=== PATIENT | female | born 1975 | race African-American/Black ===

== ENCOUNTER 2016-09-14 11:05 | Emergency (ER) | payer MEDICAID ==
[~2016-09-14] VITALS: Ht 165.1 cm; Wt 90.0 kg
[~2016-09-14 11:05] MED LIST: LISI-363 PO; METO50CR PO; TRIA1CAP PO; [UNRECOGNIZED DRUG - CODE] PO
--- NOTE | 2016-09-14 11:18 | PD ---
Physical Exam Date Seen by Provider: Sep 14, 2016 Time Seen by Provider: 11:15 Narrative 40 y/o Female patient here with several day history of lower extremity pain and abdominal cramps and distention. Denies changes in bowels or bladder. No vomitting. LMP August 20. Vital signs reviewed. Patient stable. Awaiting Bed placement. [facility] Medical Record Reviewed: Yes Supervised Visit with DAMI: Yes Condition: Stable Jarrett Olmos Sep 14, 2016 11:18
--- NOTE | 2016-09-14 12:09 | PD ---
HPI Chief Complaint: Abdominal Pain Time Seen by Provider: 12:08 Travel History International Travel<30 days: No Contact w/Intl Traveler<30days: No Traveled to known affect area: No History of Present Illness HPI 40 YO F with PMH of HTN and PCOS presents to the ED for evaluation of 5 day history of crampy lower abdominal pain radiating to the back bilaterally. Patient also complains of bloating of the lower abdomen. No alleviating or exacerbating factors reported. She endorses low appetite and occasional nausea. She denies fever, chills, dysuria, vaginal discharge. LMP 08/11/16. Patient states that the pain was "so bad over the weekend that I couldn't walk. " PFSH Past Medical History Cancer: No Cardiac Catheterization: Yes Cardiovascular Problems: Yes Diminished Hearing: No Endocrine: No Genitourinary: No Headaches: Yes Hypertension: Yes Immune Disorder: No Musculoskeletal: No Neurologic: Yes Psychiatric: No Reproductive: Yes (POLYCYSTIC OVARY DISEASE) Respiratory: No ?: Not LMP: 08/11/16 : 1 Para: 1 Past Surgical History Other Surgery: Yes Social History Alcohol Use: Yes (OCCASIONAL ) Tobacco Use: Yes (1 ppd CIGARETTES A DAY) Substance Use: Yes ( MARIJUANA ) Allergies-Medications (Allergen,Severity, Reaction): Coded Allergies: Kiwi (Verified Allergy, Severe, LIP SWELLING, 09/14/16) Reported Meds & Prescriptions Reported Meds & Active Scripts Active Lortab (Hydrocodone-Acetaminophen) 10-325 Mg Tab 1 Tab PO Q6H PRN Reported Amlodipine (Amlodipine Besylate) 10 Mg Tab 10 Mg PO DAILY Lisinopril 10 Mg Tab 10 Mg PO DAILY Paroxetine (Paroxetine HCl) 10 Mg Tab 10 Mg PO DAILY Review of Systems Except as stated in HPI: all other systems reviewed are Neg Physical Exam Narrative GENERAL: Well-nourished, well-developed, hirsute, tearful AA female in no acute distress. SKIN: Focused skin assessment warm/dry. HEAD: Normocephalic. EYES: No scleral icterus. No injection or drainage. NECK: Supple, trachea midline. No JVD or lymphadenopathy. CARDIOVASCULAR: Regular rate and rhythm without murmurs, gallops, or rubs. RESPIRATORY: Breath sounds equal bilaterally. No accessory muscle use. GASTROINTESTINAL: Abdomen distended, diffusely tender. Active bowel sounds. No palpable masses. MUSCULOSKELETAL: No cyanosis, or edema. NEUROLOGICAL: Awake and alert. Cranial nerves II through XII intact. Motor and sensory grossly within normal limits. 5/5 muscle strength in all muscle groups. Normal speech. BACK: Nontender without obvious deformity. Positive bilateral flank and CVA tenderness. Data Data Last Documented VS Vital Signs Date Time Temp Pulse Resp B/P Pulse Ox O2 Delivery O2 Flow Rate FiO2 09/14/16 17:46 100.3 09/14/16 13:40 89 18 133/78 100 Room Air Orders Complete Blood Count With Diff (09/14/16 12:24) Comprehensive Metabolic Panel (09/14/16 12:24) Lipase (09/14/16 12:24) Lactic Acid (09/14/16 12:24) Prothrombin Time / Inr (Pt) (09/14/16 12:24) Act Partial Throm Time (Ptt) (09/14/16 12:24) Urinalysis - C+S If Indicated (09/14/16 12:24) Iv Access Insert/Monitor (09/14/16 12:24) Ecg Monitoring (09/14/16 12:24) Oximetry (09/14/16 12:24) Sodium Chlor 0.9% 1000 Ml Inj (Ns 1000 M (09/14/16 12:24) Sodium Chloride 0.9% Flush (Ns Flush) (09/14/16 12:30) Ed Urine Pregnancytest Poc (09/14/16 12:24) Ct Abd/Pel W Iv Contrast(Rout) (09/14/16 13:54) Iohexol 350 Inj (Omnipaque 350 Inj) (09/14/16 16:46) Acetaminophen (Tylenol) (09/14/16 18:00) Labs Laboratory Tests Test 09/14/16 09/14/16 09/14/16 12:40 12:41 13:40 White Blood Count 6.6 TH/MM3 Red Blood Count 3.22 MIL/MM3 Hemoglobin 9.1 GM/DL Hematocrit 27.6 % Mean Corpuscular Volume 85.5 FL Mean Corpuscular Hemoglobin 28.3 PG Mean Corpuscular Hemoglobin 33.1 % Concent Red Cell Distribution Width 17.6 % Platelet Count 278 TH/MM3 Mean Platelet Volume 8.0 FL Neutrophils (%) (Auto) 79.8 % Lymphocytes (%) (Auto) 12.7 % Monocytes (%) (Auto) 6.9 % Eosinophils (%) (Auto) 0.2 % Basophils (%) (Auto) 0.4 % Neutrophils # (Auto) 5.3 TH/MM3 Lymphocytes # (Auto) 0.8 TH/MM3 Monocytes # (Auto) 0.5 TH/MM3 Eosinophils # (Auto) 0.0 TH/MM3 Basophils # (Auto) 0.0 TH/MM3 CBC Comment DIFF FINAL Differential Comment Prothrombin Time 10.8 SEC Prothromb Time International 1.0 RATIO Ratio Activated Partial 29.1 SEC Thromboplast Time Sodium Level 138 MEQ/L Potassium Level 3.9 MEQ/L Chloride Level 106 MEQ/L Carbon Dioxide Level 23.7 MEQ/L Anion Gap 8 MEQ/L Blood Urea Nitrogen 8 MG/DL Creatinine 1.05 MG/DL Estimat Glomerular Filtration 70 ML/MIN Rate Random Glucose 76 MG/DL Calcium Level 8.5 MG/DL Total Bilirubin 0.4 MG/DL Aspartate Amino Transf 29 U/L (AST/SGOT) Alanine Aminotransferase 12 U/L (ALT/SGPT) Alkaline Phosphatase 66 U/L Total Protein 7.2 GM/DL Albumin 2.9 GM/DL Lipase 153 U/L Lactic Acid Level 0.7 mmol/L Urine Color YELLOW Urine Turbidity CLEAR Urine pH 6.0 Urine Specific [place] 1.016 Urine Protein 30 mg/dL Urine Glucose (UA) NEG mg/dL Urine Ketones 10 mg/dL Urine Occult Blood NEG Urine Nitrite NEG Urine Bilirubin NEG Urine Urobilinogen 2.0 MG/DL Urine Leukocyte Esterase NEG Urine RBC LESS THAN 1 /hpf Urine WBC 2 /hpf Urine Squamous Epithelial 1 /hpf Cells Urine Bacteria RARE /hpf Microscopic Urinalysis Comment CULT NOT INDICATED MDM Medical Decision Making Medical Screen Exam Complete: Yes Emergency Medical Condition: Yes Differential Diagnosis versus ectopic versus UTI versus PCOS versus other Narrative Course 40 YO F with PMH of HTN and PCOS presents to the ED for evaluation of 5 day history of abdominal bloating, crampy lower abdominal pain radiating to the back bilaterally. She endorses low appetite and occasional nausea. She denies fever, chills, dysuria, vaginal discharge. LMP 08/11/16. Vitals reviewed. Physical exam reveals a nontoxic-appearing Nena female in no acute distress. The belly is mildly distended and diffusely tender with active bowel sounds. Positive bilateral CVA tenderness. Patient was administered 1 L normal saline. CBC with anemia, Hgb of 9.1. Coags, CMP, UA unremarkable. CT of the abdomen and pelvis reveals large pelvic mass emanating from the right adnexa, suspicious for cystadenoma or cystadenocarcinoma. I spoke with the OB hospitalist who recommended outpatient follow-up with Dr. Flores this week. I discussed this plan with the patient who is agreeable. She was provided with a prescription for 10 mg Lortab 3 times a day, cautioned not to drive while taking narcotics, instructed to return to normal, gentle activity as tolerated, follow up tomorrow morning as discussed. She indicated understanding of the instructions and is agreeable to the care plan. She is stable and discharged home. Diagnosis Primary Impression: Pelvic mass Referrals: Dr. Irais Rosales Patient Instructions: General Instructions, Ovarian Cyst (ED), Uterine Fibroids (ED) Additional Instructions: Rest, hydrate. Return to normal, gentle activities as tolerated. Take pain medications as prescribed. Do not drive while taking narcotic pain medications. Follow-up with Dr. Rosales this week as discussed. Return to the ED for any urgent or emergent medical condition. Med/Other Pt SpecificInfo: Prescription(s) given Scripts Hydrocodone-Acetaminophen (Lortab)10-325 Mg Tab1 Tab PO Q6H PRN (PAIN) #20 TAB Ref 0 Prov:Dilan Guzman MD 09/14/16 Disposition: 01 DISCHARGE HOME Condition: Stable Kelsey Jimenez Sep 14, 2016 12:09
[2016-09-14] MEDS ORDERED: LISI10TA3 PO (12:13)
[2016-09-14] MEDS ORDERED: PARO10TA2 PO (12:13)
[2016-09-14] MEDS ORDERED: AMLO10TA2 PO (12:13)
[2016-09-14] MEDS ORDERED: SODIUM CHLOR 0.9% 1000 ML INJ 1,000 ML IV SCH (12:24)
[2016-09-14] MEDS ORDERED: SODIUM CHLORIDE 0.9% FLUSH 10 ML FLUSH IV FLUSH PRN (12:30)
[2016-09-14 13:07] LABS: AUTOMATED NEUTROPHIL # 5.3 TH/MM3 (1.8-7.7); BASOPHIL % 0.4 % (0.0-2.0); EOSINOPHIL % 0.2 % (0.0-4.0); HEMATOCRIT 27.6 % (35.0-46.0); HEMO FLAGS DIFF FINAL; LYMPH % 12.7 % (9.0-44.0); LYMPHOCYTE # 0.8 TH/MM3 (1.0-4.8); MEAN CELL VOLUME 85.5 FL (80.0-100.0); MEAN CORPUSCULAR HEMOGLOBIN 28.3 PG (27.0-34.0); MEAN CORPUSCULAR HGB CONC 33.1 % (32.0-36.0); MONO % 6.9 % (0.0-8.0); NEUT % 79.8 % (16.0-70.0); PLATELET COUNT 278 TH/MM3 (150-450); RED BLOOD COUNT 3.22 MIL/MM3 (4.00-5.30); RED CELL DISTRIBUTION WIDTH 17.6 % (11.6-17.2); WHITE BLOOD COUNT 6.6 TH/MM3 (4.0-11.0)
[2016-09-14 13:24] LABS: APTT (PATIENT) 29.1 SEC (24.3-30.1); PROTHROMBIN TIME - PATIENT 10.8 SEC (9.8-11.6)
[2016-09-14 13:25] LABS: ALT (GPT) 12 U/L (10-53); ANION GAP 8 MEQ/L (5-15); AST (GOT) 29 U/L (15-37); BICARBONATE 23.7 MEQ/L (21.0-32.0); BLOOD UREA NITROGEN 8 MG/DL (7-18); CHLORIDE 106 MEQ/L (98-107); GLOMERULAR FILTRATION RATE 70 ML/MIN (>89); POTASSIUM 3.9 MEQ/L (3.5-5.1); SODIUM (NA) 138 MEQ/L (136-145)
[2016-09-14 13:28] LABS: ALKALINE PHOSPHATASE 66 U/L (45-117); TOTAL BILIRUBIN ADULT 0.4 MG/DL (0.2-1.0)
[2016-09-14 13:40] VITALS: BP 133/78; PULSE 89; RESP 18; TEMP 99.8; O2SAT 100
[2016-09-14 14:08] LABS: BACTERIA, URINE RARE /hpf; BLOOD, URINE NEG (NEG); COMMENT (UR) CULT NOT INDICATED; CULTURE IF INDICATED CULT NOT INDICATED; GLUCOSE,URINE NEG (NEG); KETONE, URINE 10 mg/dL (NEG); NITRITE,URINE NEG (NEG); SQUAMOUS EPITHELIAL CELL URINE 1 /hpf (0-5); URINE COLOR YELLOW (YELLW/STRAW)
[2016-09-14] MEDS ORDERED: IOHEXOL 350 MG/ML 10 ML VIAL (for RAD DIAG) IV ONE (16:46)
[2016-09-14] MEDS ORDERED: HYDR-3535 PO (17:27)
--- NOTE | 2016-09-14 17:32 | RADRPT ---
EXAM DATE/TIME: 09/14/2016 16:32 [place] COMPARISON: No previous studies available for comparison. INDICATIONS : Severe lower abdominal pain. IV CONTRAST: 94 cc Omnipaque 350 (iohexol) IV ORAL CONTRAST: No oral contrast ingested. RADIATION DOSE: 16.15 CTDIvol (mGy) MEDICAL HISTORY : Cardiovascular disease. Hypertension. Polycystic ovarian disease. SURGICAL HISTORY : None. ENCOUNTER: Initial ACUITY: 1 week PAIN SCALE: 8/10 LOCATION: Bilateral lower quadrant TECHNIQUE: Volumetric scanning of the abdomen and pelvis was performed. Using automated exposure control and ad justment of the mA and/or kV according to patient size, radiation dose was kept as low as reasonably achievable to obtain optimal diagnostic quality images. DICOM format image data is available electro nically for review and comparison. FINDINGS: LOWER LUNGS: The visualized lower lungs are clear. LIVER: Homogeneous density without lesion. There is no dilation of the biliary tree. No calcified gallston es. SPLEEN: Normal size without lesion. PANCREAS: Within normal limits. KIDNEYS: Normal in size and shape. There is no mass, stone or hydronephrosis. ADRENAL GLANDS: Within normal limits. VASCULAR: There is no aortic aneurysm. BOWEL/MESENTERY: The stomach, small bowel, and colon demonstrate no acute abnormality. There is no free intraperitone al air or fluid. ABDOMINAL WALL: Within normal limits. RETROPERITONEUM: There is no lymphadenopathy. BLADDER: No wall thickening or mass. REPRODUCTIVE: A very large abdominal pelvic complex multiloculated cystic mass is identified. Numerous thickened an d mildly nodular septa are seen throughout the mass. The mass measures 20 x 12.9 x 24 cm in size. It appears to be originating from the right adnexal region. Small to moderate amount of free fluid is id entified in the pelvis. INGUINAL: Subcentimeter lymph nodes are identified in the inguinal region. MUSCULOSKELETAL: Within normal limits for patient age. CONCLUSION: Very large complex septated predominantly cystic abdominal pelvic mass which appears to be originatin g from the right adnexa and is characteristic of a large cystadenoma or cystadenocarcinoma. Small to moderate amount of free fluid in the pelvis. No findings suspicious for peritoneal implants or malignant lymphadenopathy. Joe Conteh MD on September 14, 2016 at 17:21 Board Certified Radiologist. This report was verified electronically.
[2016-09-14 17:46] VITALS: TEMP 100.3
--- NOTE | 2016-09-14 17:47 | PD ---
Data Data Last Documented VS Vital Signs Date Time Temp Pulse Resp B/P Pulse Ox O2 Delivery O2 Flow Rate FiO2 09/14/16 13:40 99.8 89 18 133/78 100 Room Air Orders Complete Blood Count With Diff (09/14/16 12:24) Comprehensive Metabolic Panel (09/14/16 12:24) Lipase (09/14/16 12:24) Lactic Acid (09/14/16 12:24) Prothrombin Time / Inr (Pt) (09/14/16 12:24) Act Partial Throm Time (Ptt) (09/14/16 12:24) Urinalysis - C+S If Indicated (09/14/16 12:24) Iv Access Insert/Monitor (09/14/16 12:24) Ecg Monitoring (09/14/16 12:24) Oximetry (09/14/16 12:24) Sodium Chlor 0.9% 1000 Ml Inj (Ns 1000 M (09/14/16 12:24) Sodium Chloride 0.9% Flush (Ns Flush) (09/14/16 12:30) Ed Urine Pregnancytest Poc (09/14/16 12:24) Ct Abd/Pel W Iv Contrast(Rout) (09/14/16 13:54) Iohexol 350 Inj (Omnipaque 350 Inj) (09/14/16 16:46) Labs Laboratory Tests Test 09/14/16 09/14/16 09/14/16 12:40 12:41 13:40 White Blood Count 6.6 TH/MM3 Red Blood Count 3.22 MIL/MM3 Hemoglobin 9.1 GM/DL Hematocrit 27.6 % Mean Corpuscular Volume 85.5 FL Mean Corpuscular Hemoglobin 28.3 PG Mean Corpuscular Hemoglobin 33.1 % Concent Red Cell Distribution Width 17.6 % Platelet Count 278 TH/MM3 Mean Platelet Volume 8.0 FL Neutrophils (%) (Auto) 79.8 % Lymphocytes (%) (Auto) 12.7 % Monocytes (%) (Auto) 6.9 % Eosinophils (%) (Auto) 0.2 % Basophils (%) (Auto) 0.4 % Neutrophils # (Auto) 5.3 TH/MM3 Lymphocytes # (Auto) 0.8 TH/MM3 Monocytes # (Auto) 0.5 TH/MM3 Eosinophils # (Auto) 0.0 TH/MM3 Basophils # (Auto) 0.0 TH/MM3 CBC Comment DIFF FINAL Differential Comment Prothrombin Time 10.8 SEC Prothromb Time International 1.0 RATIO Ratio Activated Partial 29.1 SEC Thromboplast Time Sodium Level 138 MEQ/L Potassium Level 3.9 MEQ/L Chloride Level 106 MEQ/L Carbon Dioxide Level 23.7 MEQ/L Anion Gap 8 MEQ/L Blood Urea Nitrogen 8 MG/DL Creatinine 1.05 MG/DL Estimat Glomerular Filtration 70 ML/MIN Rate Random Glucose 76 MG/DL Calcium Level 8.5 MG/DL Total Bilirubin 0.4 MG/DL Aspartate Amino Transf 29 U/L (AST/SGOT) Alanine Aminotransferase 12 U/L (ALT/SGPT) Alkaline Phosphatase 66 U/L Total Protein 7.2 GM/DL Albumin 2.9 GM/DL Lipase 153 U/L Lactic Acid Level 0.7 mmol/L Urine Color YELLOW Urine Turbidity CLEAR Urine pH 6.0 Urine Specific [place] 1.016 Urine Protein 30 mg/dL Urine Glucose (UA) NEG mg/dL Urine Ketones 10 mg/dL Urine Occult Blood NEG Urine Nitrite NEG Urine Bilirubin NEG Urine Urobilinogen 2.0 MG/DL Urine Leukocyte Esterase NEG Urine RBC LESS THAN 1 /hpf Urine WBC 2 /hpf Urine Squamous Epithelial 1 /hpf Cells Urine Bacteria RARE /hpf Microscopic Urinalysis Comment CULT NOT INDICATED MDM Supervised Visit with DAMI: Yes Narrative Course The history, exam, and medical decision-making in the associated mid-level provider note were completed with my assistance. I reviewed and agree with the findings presented. I attest that I had a [id number] encounter with the patient on the same day, and personally performed and documented my assessment and findings in the medical record. *My assessment and Findings: 40-year-old woman notes abdominal pain ongoing for sometime worse over the past couple days, found to have a large pelvic mass, unclear etiology, possibly fibroids or ovarian or other. Recommend close outpatient follow-up with [facility] [facility]. Diagnosis Primary Impression: Uterine fibroid Qualified Code: D25.9 - Uterine leiomyoma, unspecified location Referrals: Dr. Irais Rosales Patient Instructions: General Instructions, Uterine Fibroids (ED) Departure Forms: Tests/Procedures Additional Instruction: Rest, hydrate. Return to normal, gentle activities as tolerated. Take pain medications as prescribed. Do not drive while taking narcotic pain medications. Follow-up with Dr. Rosales this week as discussed. Return to the ED for any urgent or emergent medical condition. Scripts Hydrocodone-Acetaminophen (Lortab)10-325 Mg Tab1 Tab PO Q6H PRN (PAIN) #20 TAB Ref 0 Prov:Dilan Guzman MD 09/14/16 Disposition: 01 DISCHARGE HOME Condition: Stable Dilan Guzman MD Sep 14, 2016 17:47
[2016-09-14] MEDS ORDERED: ACETAMINOPHEN 325 MG TAB PO ONE (18:00)
== END 2016-09-14 17:38 | disposition home or self-care (01) ==
LOC: NEPD 11:05
DX: R19.03 Right lower quadrant abdominal swelling, mass and lump (principal); E28.2 Polycystic ovarian syndrome; I25.10 Atherosclerotic heart disease of native coronary artery without angina pectoris; I10 Essential (primary) hypertension; F17.210 Nicotine dependence, cigarettes, uncomplicated; F12.10 Cannabis abuse, uncomplicated
CPT/HCPCS: 74177; 80053; 81001; 83605; 83690; 84703; 85025; 85610; 85730; 96360; 99285; J7030; Q9967

== ENCOUNTER 2016-10-05 09:19 | Inpatient (IN) | payer MEDICAID ==
[~2016-10-05] VITALS: Ht 165.1 cm; Wt 92.9 kg
--- NOTE | 2016-10-05 08:17 | MH ---
cc: BALDO LONG M.D. DATE OF ADMISSION: 10/05/2016 HISTORY OF PRESENT ILLNESS The patient is a 40-year-old black female, G1, P1, whose last menstrual period was September 14, who presented to my office on September 18 as a followup from being seen in the emergency room the prior week. She went to the emergency room due to a sudden onset of lower pelvic pain and abdominal pain that became significantly worse and radiated to her back and thighs. At the time she did not have any nausea or vomiting, no changes in bowel movements, no fever, no urinary symptoms. Emergency room evaluation revealed the patient by CAT scan to have a 24 cm adnexal mass. It described that the lungs were clear, the liver was normal without any lesions, normal biliary tree and no gallstones, normal spleen, normal pancreas, normal kidneys, normal adrenal glands, normal bowel evaluation, normal abdominal wall, no lymphadenopathy in the retroperitoneum, bladder normal. It showed a complex pelvic mass multiloculated, cystic, numerous thickened and mildly nodular septa were seen, the mass measures 20 x 12.9 x 24 cm and they feel it is originating from the right adnexa. Small to moderate amount of free fluid is identified in the pelvis. She did have some sub-centimeter lymph node identified in the inguinal region. Attempts to have an MRI done on this patient were denied by insurance. We did a CA-125 on this patient that came back at 128. I discussed with her the need for surgical exploration and treatment of the mass for definitive diagnosis as well. I recommend that she have that done with a [facility] oncologist, however, her insurance does not provide for any [facility]RAP PLACER oncologist and so I will have to start the surgery and if we need intraoperative help we will consult the RIPRAP PLACER oncologist that way, she is aware of that. Recommended for her that the treatment of her case would be an exploratory laparotomy with removal of the right adnexal mass with a frozen section to see what we are dealing with, if she has a malignancy, that we would proceed at that time with definitive treatment of that with a THIAGO, BSO and any other indicated procedure which would be in the hands of the [employer] PLACER oncologist. She is aware of that and desired to proceed. She is aware of the risks of the surgery which are including and not limited to infection, bleeding, damage to internal organs requiring repair such as damage to the pelvic vasculature, the ureter, the bowel and the bladder. PAST MEDICAL HISTORY Past medical history on this patient is PCOS and hypertension. PAST SURGICAL HISTORY Past surgical history is negative. MEDICATION Medications currently are: 1. Paxil. 2. Lisinopril. 3. Amlodipine. ALLERGIES None. SOCIAL HISTORY Seven cigarettes per day. Occasional alcohol. No drug use. 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 FAMILY HISTORY Family history is lupus, diabetes, hypertension and ovarian cancer in a maternal aunt. GYNECOLOGIC HISTORY No abnormal Paps. She does have a history of Chlamydia and history of condyloma. OBSTETRICAL HISTORY She has an x1. PHYSICAL EXAMINATION VITAL SIGNS: On physical exam her weight is 207, height 5 feet 5 inches, blood pressure 130/76, pulse of 70. BREASTS: Without masses, nodes or discharge. CHEST: Clear to auscultation bilaterally. CARDIAC: Regular rate and rhythm without murmur, rub or gallop. ABDOMEN: Abdomen is distended with a large mass which fills the entire pelvis up to the upper abdomen. It is tender all over her abdomen. There is no rebound or guarding. I cannot really tell much more about the abdominal exam. PELVIC: Normal external female genitalia. There was no lesions. Vaginal vault without lesions. Cervix without lesions. The uterus and adnexa are very difficult to appreciate, it is just a large pelvic mass. ASSESSMENT/PLAN Probable right adnexal complex cystic mass with an elevated CA-125 in a patient with a family history of ovarian cancer. Plan will be for exploratory laparotomy, removal of the pelvic mass, possible THIAGO-BSO, possible lymph node sampling. Baldo Long MD CCD/TLL /7:43 AM /7:54 AM
[~2016-10-05 09:19] MED LIST changes: +AMLO5TAB2 PO; +HYDR-3535 PO; -LISI-363 PO; +LISI40TA PO; -METO50CR PO; +PARO10TA2 PO; -TRIA1CAP PO; -[UNRECOGNIZED DRUG - CODE] PO
[2016-10-05] MEDS ORDERED: METOPROLOL TARTRATE 25 MG TAB PO PRN (10:30)
[2016-10-05] MEDS ORDERED: LACTATED RINGER'S 1000 ML IV PRN (10:30)
[2016-10-05] MEDS ORDERED: ceFAZolin 2 GM PREMIX 50 ML IV SCH (10:30)
[2016-10-05] MEDS ORDERED: CHLORHEXIDINE GLUCONATE 2 % 1 PACK (2 CLOTHS) TOPICAL PRN (10:30)
[2016-10-05] MEDS ORDERED: POVIDONE IODINE 5% (ANTISEPSIS KIT) 4 APPLICATIONS EACH NARE PRN (10:30)
[2016-10-05] MEDS ORDERED: INSULIN HUMAN REGULAR 1,000 UNITS/10 ML VIAL SQ PRN (10:30)
[2016-10-05] MEDS ORDERED: SODIUM CHLORID 0.9% 500 ML IV PRN (10:30)
[2016-10-05 10:36] LABS: AUTOMATED NEUTROPHIL # 3.4 TH/MM3 (1.8-7.7); BASOPHIL # 0.1 TH/MM3 (0-0.2); EOSINOPHIL # 0.2 TH/MM3 (0-0.4); EOSINOPHIL % 4.2 % (0.0-4.0); HEMO FLAGS DIFF FINAL; LYMPH % 20.9 % (9.0-44.0); MEAN CELL VOLUME 82.5 FL (80.0-100.0); MEAN CORPUSCULAR HEMOGLOBIN 26.8 PG (27.0-34.0); MEAN CORPUSCULAR HGB CONC 32.5 % (32.0-36.0); MONO % 5.4 % (0.0-8.0); NEUT % 68.5 % (16.0-70.0); PLATELET COUNT 391 TH/MM3 (150-450); RED BLOOD COUNT 3.39 MIL/MM3 (4.00-5.30); RED CELL DISTRIBUTION WIDTH 19.1 % (11.6-17.2)
[2016-10-05 10:49] LABS: BICARBONATE 27.7 MEQ/L (21.0-32.0); POTASSIUM 3.8 MEQ/L (3.5-5.1)
[2016-10-05] MEDS ORDERED: NEOSTIGMINE 3 MG/3 ML SYR IV ONE (12:00)
[2016-10-05] MEDS ORDERED: NORMOSOL R INJ 1,000 ML IV ONE (12:00)
[2016-10-05] MEDS ORDERED: PROPOFOL 200 MG/20 ML AMP IV ONE (12:00)
[2016-10-05] MEDS ORDERED: ONDANSETRON HCL 4 MG/2 ML VIAL IV PUSH ONE (12:00)
[2016-10-05] MEDS ORDERED: NEOSTIGMINE METHYLSULFATE 10 MG/10 ML VIAL IV PUSH ONE (12:00)
[2016-10-05] MEDS ORDERED: DO NOT ADM ANY ANTICOAGULANT DRUGS PRN (12:23)
[2016-10-05] MEDS ORDERED: ACETAMINOPHEN 1000 MG/100 ML 100 ML IV ONE (12:29)
[2016-10-05] MEDS ORDERED: diphenhydrAMINE HCL 50 MG/ML VIAL IV PRN (12:30)
[2016-10-05] MEDS ORDERED: ONDANSETRON HCL 4 MG/2 ML VIAL IV PUSH PRN (12:30)
[2016-10-05] MEDS ORDERED: hydrALAZINE HCL 20 MG/ML VIAL ONE (12:30)
[2016-10-05] MEDS ORDERED: MORPHINE SULFATE 4 MG/ML INJ IV PRN (12:30)
[2016-10-05] MEDS ORDERED: *HYDROmorphone PF 1 MG VIAL PERIprocedural Use ONLY ONE ×3 (12:33→13:16)
[2016-10-05] MEDS: LACTATED RINGER'S 1000 ML INJ 1,000 ML IV SCH ×2 (13:20→17:25)
[2016-10-05] MEDS: KETOROLAC TROMETHAMINE 30 MG/ML (IVP) VIAL IV PUSH PRN ×2 (13:20→21:57)
[2016-10-05 15:00] VITALS: BP 131/87; PULSE 75; RESP 16; TEMP 97.5; O2SAT 100
[2016-10-05] MEDS: ACETAMINOPHEN/HYDROcodone 325 MG/5 MG TAB PO PRN ×2 (17:23→21:56)
[2016-10-05 20:40] VITALS: BP 129/92; PULSE 79; RESP 18; TEMP 99; O2SAT 98
[2016-10-05] MEDS: SODIUM CHLORIDE 0.9% FLUSH 10 ML FLUSH IV FLUSH SCH ×2 (21:00→21:56)
[2016-10-06 00:15] VITALS: BP 137/88; PULSE 83; RESP 18; TEMP 99.5; O2SAT 97
[2016-10-06 04:40] VITALS: BP 136/84; PULSE 88; RESP 18; TEMP 98.9
[2016-10-06] MEDS: LACTATED RINGER'S 1000 ML INJ 1,000 ML IV SCH (04:42)
[2016-10-06] MEDS: SODIUM CHLORIDE 0.9% FLUSH 10 ML FLUSH IV FLUSH PRN (04:42)
[2016-10-06] MEDS: ACETAMINOPHEN/HYDROcodone 325 MG/5 MG TAB PO PRN ×5 (04:43→20:47)
[2016-10-06] MEDS: KETOROLAC TROMETHAMINE 30 MG/ML (IVP) VIAL IV PUSH PRN ×3 (04:43→20:40)
[2016-10-06 05:53] LABS: AUTOMATED NEUTROPHIL # 4.2 TH/MM3 (1.8-7.7); BASOPHIL % 0.4 % (0.0-2.0); EOSINOPHIL # 0.1 TH/MM3 (0-0.4); EOSINOPHIL % 2.3 % (0.0-4.0); HEMATOCRIT 25.6 % (35.0-46.0); HEMO FLAGS DIFF FINAL; LYMPH % 21.6 % (9.0-44.0); LYMPHOCYTE # 1.3 TH/MM3 (1.0-4.8); MEAN CELL VOLUME 82.2 FL (80.0-100.0); MEAN CORPUSCULAR HEMOGLOBIN 26.7 PG (27.0-34.0); MEAN CORPUSCULAR HGB CONC 32.4 % (32.0-36.0); NEUT % 71.7 % (16.0-70.0); PLATELET COUNT 373 TH/MM3 (150-450); RED BLOOD COUNT 3.11 MIL/MM3 (4.00-5.30); RED CELL DISTRIBUTION WIDTH 18.9 % (11.6-17.2); WHITE BLOOD COUNT 5.8 TH/MM3 (4.0-11.0)
[2016-10-06 08:25] VITALS: BP 146/81; PULSE 61; RESP 16; TEMP 98.5
--- NOTE | 2016-10-06 13:09 | HHI.PR ---
Subjective Remarks Doing well, pain is well controlled, eating well, urination good, ambulating Objective Vital Signs Vital Signs Date Time Temp Pulse Resp B/P (MAP) Pulse Ox O2 Delivery O2 Flow Rate FiO2 10/06/16 08:25 98.5 61 16 146/81 (102) 10/06/16 04:40 98.9 88 18 136/84 (101) 10/06/16 00:15 99.5 83 18 137/88 (104) 97 10/05/16 20:40 99.0 79 18 129/92 (104) 98 10/05/16 15:00 97.5 75 16 131/87 (102) 100 10/05/16 14:45 97.4 73 16 129/82 (98) 100 Nasal Cannula 2 10/05/16 14:15 72 16 131/76 (94) 100 Nasal Cannula 2 10/05/16 14:00 72 16 131/76 (94) 100 Nasal Cannula 2 10/05/16 13:45 83 16 117/67 (84) 100 Nasal Cannula 2 10/05/16 13:30 75 16 117/67 (84) 100 Nasal Cannula 2 10/05/16 13:15 83 16 160/91 (114) 100 Nasal Cannula 2 I/O 10/05/16 10/05/16 10/05/16 10/06/16 10/06/16 10/06/16 07:00 15:00 23:00 07:00 15:00 23:00 Intake Total 2127 ml 1660 ml Output Total 300 ml 250 ml 950 ml 500 ml Balance 1827 ml -250 ml 710 ml -500 ml Intake Oral 60 ml IV Total 517 ml 1660 ml Other 1550 ml Output Urine Total 250 ml 250 ml 950 ml 500 ml Estimated Blood Loss 50 ml Result Diagram: 10/06/16 0513 10/05/16 1020 Objective Remarks Chest is clear, regular rate and rhythm. Abdomen is soft and non-distended. Incision is clean and dry. Ext no CCE. 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 Inhibin B 2. routine post op care Irais Vega MD Oct 06, 2016 13:09
[2016-10-06 15:15] VITALS: BP 138/89; PULSE 67; RESP 18; TEMP 98.8
--- NOTE | 2016-10-06 16:27 | MP ---
cc: BALDO LONG M.D. DATE OF SURGERY 10/05/2016 PREOPERATIVE DIAGNOSIS Pelvic mass with suspected adnexal mass complex in nature with an elevated CA-125. 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 PROCEDURE PERFORMED Exploratory laparotomy with a left salpingo-oophorectomy. SPICE FUMIGATOR Dr. Baldo Long. ANESTHESIA General endotracheal. FINDINGS In surgery included a torsed left tube and ovary twisted about six times on its pedicle, vascular pedicle, enlarged ovary to about 25 cm in size. Upon removal it did rupture at the surface of the abdomen and was very hemorrhagic, it was just old blood clot. Rapid frozen section revealed a granulosa cell tumor, normal-appearing right tube and ovary, normal appearing uterus, normal appearing pelvis, normal diaphragm, normal bowel. COMPLICATIONS None. BLOOD LOSS None. PROCEDURE IN DETAIL After proper consents were obtained, the patient was taken to the operating room where general endotracheal anesthesia was applied. She was then placed in dorsal position. She was sterilely prepped and draped and a Mack catheter was placed. At this time using a sharp knife a midline incision was made from the suprapubic area to just below the umbilicus. I carried that down to the fascia using Bovie cautery. Fascia was nicked in the midline, extended superiorly and inferiorly paying close attention to the bladder. I then grasped the peritoneum with two hemostats, entered sharply with Metzenbaum scissors and extended that superiorly and inferiorly. I took some pelvic washings of free fluid that was in the pelvis. I also irrigated some saline in to get more free fluid and we sent that for cytology. At this time I went ahead and was able to deliver the tube and ovary up out of the incision and just as it was completely coming out it did have a small focus of rupture with old blood coming. I closed that with an Allis and continued to deliver out the ovary. We then identified it, it was actually the left tube and ovary. It was twisted on its pedicle about six times. The right tube and ovary were normal. I went ahead and came across the infundibulopelvic ligament with the ureter being way beneath it and I actually came across that using the Enseal device with excellent hemostasis noted. We then handed the whole left tube and ovary off for frozen section which came back as a granulosa cell tumor with the pelvis being entirely benign, the uterus, tube, the ovary, the diaphragm, the bowel. I consulted intraoperatively with Dr. Garcia, the RESIDENT PHYSICIAN oncologist, and he recommended just closing the case at this time, sending the cytology and a permanent pathology on the left tube and ovary. So that is what I did. I went ahead and closed the fascia using 0 Vicryl starting at each apex meeting in midline in a running fashion. Irrigation was performed of the subcu, a couple of 3-0 Vicryl sutures were placed to close the space. I then closed the skin with tone and all sponge, lap, needle counts were correct x3. Baldo Long MD CCD/KK /1:40 PM /4:04 PM
[2016-10-06 20:20] VITALS: BP 145/88; PULSE 66; RESP 16; TEMP 99.1
[2016-10-06] MEDS: SODIUM CHLORIDE 0.9% FLUSH 10 ML FLUSH IV FLUSH SCH (20:40)
[2016-10-06 23:50] VITALS: BP 135/83; PULSE 60; RESP 18; TEMP 97.5
[2016-10-07] MEDS: KETOROLAC TROMETHAMINE 30 MG/ML (IVP) VIAL IV PUSH PRN ×2 (04:12→11:00)
[2016-10-07] MEDS: SODIUM CHLORIDE 0.9% FLUSH 10 ML FLUSH IV FLUSH PRN (04:12)
[2016-10-07] MEDS: ACETAMINOPHEN/HYDROcodone 325 MG/5 MG TAB PO PRN ×3 (04:12→12:09)
[2016-10-07 04:15] VITALS: BP 162/102; PULSE 70; RESP 16; TEMP 98.6
[2016-10-07 04:54] VITALS: BP 132/88
[2016-10-07 08:00] VITALS: BP 168/99; PULSE 57; RESP 18; TEMP 98.1
[2016-10-07] MEDS ORDERED: HYDR-3516 PO (08:10)
--- NOTE | 2016-10-07 08:12 | HHI.DCPOC ---
Discharge Care Plan Diagnosis: (1) Pelvic mass in female Report Symptoms to Your Doctor -Temperature above 100.5 degrees -Redness, of incision or excessive or foul smelling drainage -Unusual pain or calf pain -Increased vaginal bleeding -Painful or difficulty urinating -Feelings of extreme sadness or anxiety after 2 weeks Goals to Promote Your Health * To prevent worsening of your condition and complications * To maintain your health at the optimal level Directions to Meet Your Goals Take your medications as prescribed Follow your dietary instruction Follow activity as directed Ensure plenty of rest for recovery Drink fluids for hydration Keep your appointments as scheduled Take your immunizations and boosters as scheduled If your symptoms worsen call your PCP, if no PCP go to Urgent Care Center or Emergency Room Smoking is Dangerous to Your Health. Avoid second hand smoke Call the 24-hour crisis hotline for domestic abuse at Irais Vega MD Oct 07, 2016 08:12
[2016-10-07] MEDS ORDERED: amLODIPine BESYLATE 5 MG TAB PO SCH (09:00)
[2016-10-07] MEDS ORDERED: LISINOPRIL 20 MG TAB PO SCH (09:00)
[2016-10-07 09:50] VITALS: BP 146/76; PULSE 59; RESP 16
== END 2016-10-07 14:31 | disposition home or self-care (01) | DRG 738 ==
LOC: HSDI 09:19 → H1EA 14:56
PROVIDERS: ADMIT Obstetrics & Gynecology; ATTEND Obstetrics & Gynecology
PROC: 0UT10ZZ Resection of Left Ovary, Open Approach (ICD-10-PCS; 2016-10-05)
PROC: 0UT60ZZ Resection of Left Fallopian Tube, Open Approach (ICD-10-PCS; principal; 2016-10-05 11:02)
DX: D39.12 Neoplasm of uncertain behavior of left ovary (principal); E66.9 Obesity, unspecified; I10 Essential (primary) hypertension; Z68.34 Body mass index [BMI] 34.0-34.9, adult; F17.210 Nicotine dependence, cigarettes, uncomplicated
CPT/HCPCS: 80048; 82397; 85025; 86850; 86900; 86901; 88305; 88307; 88331; 94150; J0131; J0360; J0690; J1170; J1885; J2405; J2710; J3010; J7120